=== PATIENT | female | born 2000 | race Caucasian/White ===

== ENCOUNTER 2021-11-15 17:37 | Emergency (ER) | payer BC, SELFPAY ==
[2021-11-15] VITALS (8 sets, daily range): BP systolic 100–134; BP diastolic 60–77; PULSE 50–72; RESP 14–20; TEMP 36.9; O2SAT 98–100; BMI 23.6
--- NOTE | ~2021-11-15 | XR_ITS ---
EXAMINATION: XR ELBOW, LEFT CLINICAL INFORMATION: Post reduction COMPARISON: Left elbow from earlier today TECHNIQUE: Two views of the left elbow. FINDINGS: Successful reduction of elbow dislocation seen on prior radiograph today. There is a displaced fracture of the coronoid process of the ulna. XR/XR elbow LT 2V IMPRESSION: 1. Successful reduction of elbow dislocation. 2. Fracture through the base of the coronoid process of the ulna.
--- NOTE | ~2021-11-15 | XR_ITS ---
EXAMINATION: XR ELBOW, LEFT CLINICAL INFORMATION: Left elbow pain COMPARISON: None TECHNIQUE: AP, lateral, and oblique views of the left elbow. FINDINGS: Posterior dislocation. Chronic appearing ossification lateral to the lateral epicondyle. No definite fracture. XR/XR elbow LT 2V IMPRESSION: Posterior dislocation. No definite fracture although correlate with postreduction views.
[2021-11-15] MEDS: Acetaminophen 325 MG TABLET 975 MG PO (19:28)
--- NOTE | 2021-11-15 19:29 | PC.NURSE ---
pt came to triage c/o pain, requesting pain medication. pt holding left elbow, in no visible distress. pt refused icepack
[2021-11-15] MEDS: Morphine Sulfate 10 MG/ML CARTRIDGE IM (21:06)
[2021-11-15] MEDS: Ondansetron ODT 4 MG TAB.RAPDIS TRANSLINGU (21:06)
[2021-11-15] MEDS: Lidocaine HCl 1 % MPF 5 ML VIAL SUBCUT (21:34)
--- NOTE | 2021-11-15 21:47 | ED.FALL ---
HPI - Fall General Chief Complaint: Fall Stated Complaint: fall/elbow INJ Time Seen by Provider: 11/15/21 20:28 Source: patient Mode of arrival: ambulatory Limitations: no limitations History of Present Illness HPI Narrative: Apparently patient was riding horse fell with the horse landed on the left elbow came with obvious dislocation of the left elbow no other injuries history of the dislocation left elbow in the past slightly nauseated no head injury no headache Related Data Previous Rx's Medication Instructions Recorded ibuprofen 600 mg tablet 600 mg PO Q6H PRN pain #30 tabs 11/15/21 Allergies Allergy/AdvReac Type Severity Reaction Status Date / Time No Known Allergies Allergy Verified 11/15/21 19:24 Review of Systems Review of Systems: Yes all other systems are reviewed and are negative [facility] Social History Social History Alcohol intake: never Patient Tobacco Use Status: Never used Tobacco Use of substances other than those prescribed or required for medical reasons: No Advance Directives: No Advance Directives Information Provided: No Patient : No Physical Exam Vital Signs: Vital Signs: Last Vital Signs Temp 98.4 F 11/15/21 22:56 Pulse 67 11/15/21 22:56 Resp 15 11/15/21 22:56 BP 117/67 11/15/21 22:56 Pulse Ox 99 11/15/21 22:56 O2 Del Method 11/15/21 22:56 Oxygen Flow Rate 2 11/15/21 22:48 BMI result Body Mass Index 23.6 Appearance: Alert. Oriented X3. No acute distress. Eyes: PERRLA, HEENT: Pharynx normal. Oral Mucosa moist atraumatic normocephalic Neck: Normal inspection. Neck supple. CVS: Normal heart rate and rhythm. Pulses normal. Respiratory: No respiratory distress. Equal air entry bilateral, no wheezing/rales/rhonchi Abdomen: Soft and nontender. Bowel sounds are present, no mass palpable, no CVA tenderness Skin: Skin warm and dry. Normal skin color. Normal skin turgor. Extremities: No lower extremity edema. No calf tenderness left elbow obvious deformity neurovascular intact Neuro: Oriented X 3. No motor deficit. No sensory deficit Procedures Orthopedic Joint Reduction Joint #1: Time Out Performed: Yes Side: left Joint Reduction Location: elbow Analgesia: procedural sedation Local Anesthesia: other anesthetic (Propofol) Shoulder Technique Used (if applicable): traction/counter-traction Post-reduction neuro exam: intact Post-reduction vascular: intact Post Reduction X-Ray Obtained: Yes Post Reduction X-Ray Results: reduced Splint Applied: No Patient Tolerated Procedure: well Procedural Sedation Indication: fracture/dislocation reduction ASA Class: I Mallampati Class: I Preparation: teletypesetter monitor applied, pulse oximeter, capnometry used and supplemental O2 applied IV Propofol dose (mg): 100 Patient Tolerated Procedure: well Complications: none Interventions: oxygen applied MDM - Fall MDM Narrative Medical decision making narrative: Patient with left elbow dislocation with coronoid fracture joint reduced under conscious sedation neurovascular intact sling was applied patient advised to follow-up with orthopedics Discharge Plan Discharge Clinical Impression: Dislocation of elbow, left, closed, Fracture of ulna, coronoid process Patient Disposition: Home, Self-Care Instructions: Elbow Dislocation (ED), Elbow Fracture (ED) Additional Instructions: Wear the sling for at least 2 weeks and follow-up with orthopedics for further evaluation Prescriptions: New ibuprofen 600 mg tablet 600 mg PO Q6H PRN (Reason: pain) Qty: 30 0RF Referrals: Johnathon Estrella MD [Physician] - 1 week Interventions: ED Discharge Assessment Last Done: 11/16/21 00:15 Discharge Date/Time: 11/16/21 00:15
[2021-11-15] MEDS: propofoL 200 MG/20 ML VIAL 40 MG IVPUSH (22:43)
[2021-11-15] MEDS: propofoL 200 MG/20 ML VIAL 20 MG IVPUSH ×3 (22:48→22:51)
--- NOTE | 2021-11-15 23:34 | PC.NURSE ---
Pt A&Ox4, tolerated moderate sedation well. Skin pwd respirations even unlabored. Denies pain at this time, tolerating PO fluids and food. Sling applied to left arm post elbow reduction. +cms to left hand. VSS. Awaiting dc home.
== END 2021-11-16 00:15 | disposition home or self-care (01) ==
PROVIDERS: Emergency Provider Internal Medicine
DX: S52.042A Displaced fracture of coronoid process of left ulna, initial encounter for closed fracture (principal); S53.105A Unspecified dislocation of left ulnohumeral joint, initial encounter; V80.010A Animal-rider injured by fall from or being thrown from horse in noncollision accident, initial encounter; Y93.9 Activity, unspecified; Y92.79 Other farm location as the place of occurrence of the external cause; Y99.9 Unspecified external cause status
CPT/HCPCS: 24620; 73070; 96372; 96374; 96376; 99152; 99285; J2270

== ENCOUNTER 2021-11-18 18:03 | Outpatient (REF) | payer BC, SELFPAY ==
--- NOTE | ~2021-11-18 | MR_ITS ---
EXAMINATION: MRI ELBOW WITHOUT CONTRAST, LEFT CLINICAL INFORMATION: Pain following dislocation. Pain and swelling. Coronoid process fracture. COMPARISON: Left elbow radiographs dated 11/15/2021. TECHNIQUE: Multisequence MR imaging of the left elbow was obtained without contrast on a high field strength scanner. FINDINGS: ULNAR COLLATERAL LIGAMENT: Intact. COMMON FLEXOR TENDON: Edema within the proximal myotendinous junction of the common flexor tendon consistent with acute strain/partial tear. Prominent soft tissue edema. RADIAL COLLATERAL LIGAMENT: Intact. COMMON EXTENSOR TENDON: Mild edema adjacent to the common extensor tendon, consistent with an acute strain/partial tear. BICEPS/TRICEPS TENDON: Intact. ARTICULAR CARTILAGE/BONE: Redemonstration of a coronoid process fracture which appears nondisplaced and measures up to 1.2 cm in craniocaudal dimension. Overlying articular cartilage fissuring without significant cortical step-off. Anterior dislocation of the capitellum in relation to the radial head. Marrow edema within the posterior capitellum and anterior radial head without an additional fracture line. ULNAR NERVE: Intact. JOINT FLUID/SOFT TISSUES: Large elbow joint effusion with synovitis. Mild circumferential soft tissue edema. MR/MR elbow LT wo con IMPRESSION: 1. Nondisplaced coronoid process fracture which contacts the articular surface without significant cortical step-off. 2. Anterior dislocation of the capitellum in relation to the radial head with adjacent marrow edema consistent with osseous contusions. No additional fracture line. 3. Large elbow joint effusion with synovitis and mild circumferential soft tissue edema. 4. Acute strain/partial tear of the common flexor myotendinous junctions. More mild strain/partial tear of the common extensor tendon.
== END 2021-11-18 18:04 | disposition home or self-care (01) ==
LOC: HO.MRI 18:03
PROVIDERS: Visit Provider Physician Assistant
DX: M24.422 Recurrent dislocation, left elbow (principal); S52.042A Displaced fracture of coronoid process of left ulna, initial encounter for closed fracture
CPT/HCPCS: 73221